=== PATIENT | male | born 1960 | race Caucasian/White ===

== ENCOUNTER 2017-02-15 08:31 | Day surgery (SDC) | payer BC ==
[2017-02-10 12:22] VITALS: BMI 30.7
[~2017-02-15 08:31] MED LIST: LACTATED RINGERS 1,000 ML IV SCH
--- NOTE | 2017-02-15 08:33 | P.GSHP ---
History of Present Illness H&P Date: 02/15/17 CHIEF COMPLAINT: Colon screen HISTORY OF PRESENT ILLNESS: The patient is a 56-year-old male who presents for colon screen. Lower endoscopy was offered for further evaluation and management. PAST MEDICAL HISTORY: Please see list. PAST SURGICAL HISTORY: Please see list. MEDICATIONS: Please see list. ALLERGIES: Please see list. SOCIAL HISTORY: No illicit drug use FAMILY HISTORY: No reports of Crohn disease or ulcerative colitis. REVIEW OF ORGAN SYSTEMS: CONSTITUTIONAL: No reports of fevers or chills. PHYSICAL EXAM: VITAL SIGNS: Stable GENERAL: Well-developed pleasant in no acute distress. HEENT: No scleral icterus. Extraocular movements grossly intact. Moist buccal mucosa. NECK: Supple without lymphadenopathy. CHEST: Unlabored respirations. Equal bilateral excursions. CARDIOVASCULAR: Regular rate and rhythm. Distal 2+ pulses. ABDOMEN: Soft, nontender, nondistended. MUSCULOSKELETAL: No clubbing, cyanosis, or edema. ASSESSMENT: 1. Colon screen. PLAN: 1. 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, hx colon polyps History of Any Multi-Drug Resistant Organisms: None Reported Additional Past Surgical History / Comment(s): sally cataract surgery Past Anesthesia/Blood Transfusion Reactions: Previous Problems w/ Anesthesia Additional Past Anesthesia/Blood Transfusion Reaction / Comment(s): states takes extra anesthesia has woken up several times during procedures Smoking Status: Current every day smoker Past Alcohol Use History: Daily Additional Past Alcohol Use History / Comment(s): smoker 20 years 5-6 cig/day Past Drug Use History: None Reported - Past Family History Father Family Medical History: Cancer Additional Family Medical History / Comment(s): colon cancer Brother(s) Family Medical History: Blood Disorder, Coronary Artery Disease (CAD), Deep Vein Thrombosis (DVT) Medications and Allergies Home Medications Medication Instructions Recorded Confirmed Type Glaucoma Eye Drops(Unknown Name) 1 drop BOTH EYES DAILY 02/10/17 02/10/17 History Lisinopril [Zestril] 10 mg PO DAILY 02/10/17 02/10/17 History Multivitamins, Thera [Multivitamin 1 tab PO DAILY 02/10/17 02/10/17 History (formulary)] Triamcinolone Acetonide [Nasacort] 1 spray EA NOSTRIL DAILY 02/10/17 02/10/17 History amLODIPine [Norvasc] 20 mg PO DAILY 02/10/17 02/10/17 History Allergies Allergy/AdvReac Type Severity Reaction Status Date / Time morphine Allergy Hallucinati Verified 02/10/17 12:23 ons meperidine [From Demerol] AdvReac Nausea & Verified 02/10/17 12:23 Vomiting
[2017-02-15 08:54] VITALS: TEMP 98.2
[2017-02-15] MEDS ORDERED: LIDOCAINE 1% 20 ML VIAL (10MG/ML) FOR IV START INTRADERMA ONE (09:05)
[2017-02-15] MEDS ORDERED: PROPOFOL 10 MG/ML 20 ML VIAL IV ONE (09:29)
[2017-02-15 09:57] VITALS: RESP 16
[2017-02-15 10:08] VITALS: BP 152/98; PULSE 75
--- NOTE | 2017-02-15 20:03 | P.PCN ---
Date of Procedure: 02/15/17 Description of Procedure: PREOPERATIVE DIAGNOSIS: Colonoscopy screening. Personal history of colon polyps. Family history of colon cancer, father. POSTOPERATIVE DIAGNOSIS: Colonoscopy screening. Personal history of colon polyps. Family history of colon cancer, father. Colon neoplasm, tubular adenoma, 60 cm from the anal verge. OPERATION: Colonoscopy to the ileocecal valve and appendiceal orifice. Colonoscopy with snare polypectomy at 60 cm from the anal verge SURGEON: Valeria Dangelo MD. ANESTHESIA: MAC. INDICATIONS: The patient is a 56-year-old male who presents for colonoscopy screening. His last colonoscopy was over 5 years ago. He has familial history of high risk colon polyps. Benefits and risks were described and informed consent was obtained. DESCRIPTION OF PROCEDURE: The patient had undergone Gatorade, MiraLAX and Dulcolax prep. He had been brought into the operating room and laid in the left lateral decubitus position. After adequate intravenous sedation, the rectum was examined with 2% lidocaine jelly. No external hemorrhoids were encountered. The rectal tone was within normal limits. No lesions were palpated in the rectal vault. The prostate was smooth and without nodularity. An Olympus colonoscope was advanced until the ileocecal valve and appendiceal orifice were clearly viewed. The prep was excellent with clear visualization of the mucosal folds. The scope was removed with visualization of each mucosal fold. No scattered diverticulosis was encountered. At 60 cm from the anal verge, a large 1 cm tubular adenoma with thick stalk was snare polypectomy to completion. No evidence of focal colitis was found. Retroflexion of the scope demonstrated grade 1 internal hemorrhoids without active bleeding or inflammation. The colon was desufflated. The patient had tolerated the procedure well. Withdrawal time was over 6 minutes. FINDINGS: Internal hemorrhoids, grade 1 No external prolapsed hemorrhoids. No arteriovenous malformations. 1 cm tubular adenoma along 60 cm from the anal verge. No focal colitis. No scattered diverticulosis. RECOMMENDATIONS: Lower endoscopy in one year, 2018. Plan - Discharge Summary Discharge Medication List Glaucoma Eye Drops(Unknown Name) 1 drop BOTH EYES DAILY 02/10/17 [History] Lisinopril [Zestril] 10 mg PO DAILY 02/10/17 [History] Multivitamins, Thera [Multivitamin (formulary)] 1 tab PO DAILY 02/10/17 [History ] Triamcinolone Acetonide [Nasacort] 1 spray EA NOSTRIL DAILY 02/10/17 [History] amLODIPine [Norvasc] 20 mg PO DAILY 02/10/17 [History] Follow up Appointment(s)/Referral(s): Valeria Dangelo MD [STAFF PHYSICIAN] - 02/28/17 11:20 am Patient Instructions/Handouts: *Surgery [facility] - (Anesthesia) Endoscopy Discharge Instructions, Colonoscopy (GEN), Colorectal Polyps (DC), Colonoscopy (DC) Activity/Diet/Wound Care/Special Instructions: Repeat colonoscopy in one to 2 years, 2018 Discharge Disposition: HOME SELF-CARE
== END 2017-02-15 10:34 | disposition home or self-care (01) ==
LOC: ORWHC2ENDO 08:31
PROVIDERS: ATTEND Surgery Plastic and Reconstructive Surgery
DX: Z12.11 Encounter for screening for malignant neoplasm of colon (principal); Z86.010 Personal history of colon polyps; Z80.0 Family history of malignant neoplasm of digestive organs; D12.6 Benign neoplasm of colon, unspecified; K64.0 First degree hemorrhoids; I10 Essential (primary) hypertension; H40.9 Unspecified glaucoma; F17.210 Nicotine dependence, cigarettes, uncomplicated; Z86.73 Personal history of transient ischemic attack (TIA), and cerebral infarction without residual deficits; Z79.899 Other long term (current) drug therapy; Z88.5 Allergy status to narcotic agent
CPT/HCPCS: 88305; 45385; J2704

== ENCOUNTER 2020-03-20 13:13 | Inpatient (IN) | payer BC ==
[2020-03-20] MEDS ORDERED: FUROSEMIDE 10 MG/ML 4 ML VIAL IV STA (13:41)
--- NOTE | 2020-03-20 13:48 | ED ---
General Adult HPI - General Chief complaint: Shortness of Breath Stated complaint: feet swelling/SOB Time Seen by Provider: 03/20/20 13:20 Source: patient, RN notes reviewed, old records reviewed Mode of arrival: ambulatory Limitations: no limitations - History of Present Illness Initial comments: This is a 59-year-old male who presents to the emergency department with a two- week history of difficulty breathing and swollen legs. Patient states she's had intermittent chest pain over the last 2 weeks. Patient states she has high blood pressure high cost fine does smoke. Patient also states she has family history of heart disease in his father was in his 50s when he had a heart attack and and his brother also of heart attack and congestive heart failure. Patient states the pain comes and goes and is a pressure sensation more than it is actual pain. Patient denies any fever chills or cough. Patient denies any palpitations. Patient states the swelling is gone up both legs and he was put on Lasix but has not helped. Patient denies any abdominal pain patient denies nausea vomiting diarrhea. - Related Data Home Medications Medication Instructions Recorded Confirmed Glaucoma Eye Drops(Unknown Name) 1 drop BOTH EYES DAILY 02/10/17 02/15/17 Lisinopril [Zestril] 10 mg PO DAILY 02/10/17 02/15/17 Multivitamins, Thera [Multivitamin 1 tab PO DAILY 02/10/17 02/15/17 (formulary)] Triamcinolone Acetonide [Nasacort] 1 spray EA NOSTRIL DAILY 02/10/17 02/15/17 amLODIPine [Norvasc] 20 mg PO DAILY 02/10/17 02/15/17 Allergies Allergy/AdvReac Type Severity Reaction Status Date / Time morphine Allergy Hallucinati Verified 03/20/20 13:24 ons meperidine [From Demerol] AdvReac Nausea & Verified 03/20/20 13:24 Vomiting Review of Systems ROS Statement: Those systems with pertinent positive or pertinent negative responses have been documented in the HPI. ROS Other: All systems not noted in ROS Statement are negative. 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, hx colon polyps History of Any Multi-Drug Resistant Organisms: None Reported Additional Past Surgical History / Comment(s): sally cataract surgery Past Anesthesia/Blood Transfusion Reactions: Previous Problems w/ Anesthesia Additional Past Anesthesia/Blood Transfusion Reaction / Comment(s): states takes extra anesthesia has woken up several times during procedures Past Psychological History: No Psychological Hx Reported Smoking Status: Current every day smoker Past Alcohol Use History: Daily Past Drug Use History: None Reported - Past Family History Father Family Medical History: Cancer Additional Family Medical History / Comment(s): colon cancer Brother(s) Family Medical History: Blood Disorder, Coronary Artery Disease (CAD), Deep Vein Thrombosis (DVT) General Exam - General Exam Comments Initial Comments: GENERAL: Patient is well-developed and well-nourished. Patient is nontoxic and well- hydrated and is in mild distress. ENT: Neck is soft and supple. No significant lymphadenopathy is noted. Oropharynx is clear. Moist mucous membranes. Neck has full range of motion without eliciting any pain. EYES: The sclera were anicteric and conjunctiva were pink and moist. Extraocular movements were intact and pupils were equal round and reactive to light. Eyelids were unremarkable. PULMONARY: Unlabored respirations. Good breath sounds bilaterally. No audible rales rhonchi or wheezing was noted. CARDIOVASCULAR: There is a regular rate and rhythm without any murmurs gallops or rubs. ABDOMEN: Soft and nontender with normal bowel sounds. SKIN: Skin is clear with no lesions or rashes and otherwise unremarkable. NEUROLOGIC: Patient is alert and oriented x3. Cranial nerves II through XII are grossly intact. Motor and sensory are also intact. Normal speech, volume and content. Symmetrical smile. MUSCULOSKELETAL: Normal extremities with adequate strength and full range of motion. 2+ bilaterally LYMPHATICS: No significant lymphadenopathy is noted PSYCHIATRIC: Normal psychiatric evaluation. Limitations: no limitations Course Vital Signs 03/20/20 03/20/20 13:20 15:20 Temperature 98.1 F Pulse Rate 93 94 Respiratory 18 18 Rate Blood Pressure 164/85 151/83 O2 Sat by Pulse 96 96 Oximetry Medical Decision Making - Medical Decision Making EKG shows a sinus rhythm with occasional PAC at 87 bpm WV interval 148 QRS is 94 QT interval 356 QTC is 428. Patient's EKG shows no ST segment elevation or depression. Patient's chest x-ray showed no acute abnormality. Patient continued to be short of breath. I spoke with Dr. Finch he agreed to admit the patient admitted the patient wrote admitting orders consult at cardiology Because the patient's intermittent chest pain for 2 weeks a strong history I started the patient on heparin I continue heparin on the floor along with Nitropaste and aspirin - Lab Data Result diagrams: 03/20/20 14:18 03/20/20 14:18 Lab Results 03/20/20 03/20/20 03/20/20 Range/Units 14:18 14:18 14:18 WBC 11.5 H (3.8-10.6) k/uL RBC 4.64 (4.30-5.90) m/uL Hgb 14.9 (13.0-17.5) gm/dL Hct 45.1 (39.0-53.0) % MCV 97.3 (80.0-100.0) fL MCH 32.1 (25.0-35.0) pg MCHC 33.0 (31.0-37.0) g/dL RDW 12.8 (11.5-15.5) % Plt Count 287 (150-450) k/uL Neutrophils % 50 % Lymphocytes % 35 % Monocytes % 7 % Eosinophils % 3 % Basophils % 1 % Neutrophils # 5.7 (1.3-7.7) k/uL Lymphocytes # 4.1 (1.0-4.8) k/uL Monocytes # 0.8 (0-1.0) k/uL Eosinophils # 0.4 (0-0.7) k/uL Basophils # 0.1 (0-0.2) k/uL PT 9.8 (9.0-12.0) sec INR 0.9 (<1.2) APTT 26.0 (22.0-30.0) sec D-Dimer 0.40 (<0.60) mg/L FEU Sodium 138 (137-145) mmol/L Potassium 3.9 (3.5-5.1) mmol/L Chloride 102 (98-107) mmol/L Carbon Dioxide 26 (22-30) mmol/L Anion Gap 10 mmol/L BUN 28 H (9-20) mg/dL Creatinine 1.29 H (0.66-1.25) mg/dL Est GFR (CKD-EPI)AfAm 69 (>60 ml/min/1.73 sqM) Est GFR (CKD-EPI)NonAf 60 (>60 ml/min/1.73 sqM) Glucose 124 H (74-99) mg/dL Plasma Lactic Acid Memo (0.7-2.0) mmol/L Calcium 10.2 (8.4-10.2) mg/dL Magnesium 1.9 (1.6-2.3) mg/dL Total Bilirubin 0.4 (0.2-1.3) mg/dL AST 73 H (17-59) U/L ALT 79 H (4-49) U/L Alkaline Phosphatase 90 (38-126) U/L Troponin I (0.000-0.034) ng/mL NT-Pro-B Natriuret Pep pg/mL Total Protein 7.5 (6.3-8.2) g/dL Albumin 4.2 (3.5-5.0) g/dL 03/20/20 03/20/20 03/20/20 Range/Units 14:18 14:18 14:18 WBC (3.8-10.6) k/uL RBC (4.30-5.90) m/uL Hgb (13.0-17.5) gm/dL Hct (39.0-53.0) % MCV (80.0-100.0) fL MCH (25.0-35.0) pg MCHC (31.0-37.0) g/dL RDW (11.5-15.5) % Plt Count (150-450) k/uL Neutrophils % % Lymphocytes % % Monocytes % % Eosinophils % % Basophils % % Neutrophils # (1.3-7.7) k/uL Lymphocytes # (1.0-4.8) k/uL Monocytes # (0-1.0) k/uL Eosinophils # (0-0.7) k/uL Basophils # (0-0.2) k/uL PT (9.0-12.0) sec INR (<1.2) APTT (22.0-30.0) sec D-Dimer (<0.60) mg/L FEU Sodium (137-145) mmol/L Potassium (3.5-5.1) mmol/L Chloride (98-107) mmol/L Carbon Dioxide (22-30) mmol/L Anion Gap mmol/L BUN (9-20) mg/dL Creatinine (0.66-1.25) mg/dL Est GFR (CKD-EPI)AfAm (>60 ml/min/1.73 sqM) Est GFR (CKD-EPI)NonAf (>60 ml/min/1.73 sqM) Glucose (74-99) mg/dL Plasma Lactic Acid Memo 1.8 (0.7-2.0) mmol/L Calcium (8.4-10.2) mg/dL Magnesium (1.6-2.3) mg/dL Total Bilirubin (0.2-1.3) mg/dL AST (17-59) U/L ALT (4-49) U/L Alkaline Phosphatase (38-126) U/L Troponin I <0.012 (0.000-0.034) ng/mL NT-Pro-B Natriuret Pep 73 pg/mL Total Protein (6.3-8.2) g/dL Albumin (3.5-5.0) g/dL Critical Care Time Critical Care Time: Yes Total Critical Care Time: 35 Disposition Clinical Impression: Unstable angina Disposition: ADMITTED IP TO THIS [facility] Referrals: Jason Humphrey MD [Primary Care Provider] - 1-2 days Time of Disposition: 15:25
[2020-03-20 14:36] LABS: Basophils # (A) 0.1 k/uL (0-0.2); Basophils % (A) 1 %; Eosinophils # (A) 0.4 k/uL (0-0.7); Eosinophils % (A) 3 %; HCT 45.1 % (39.0-53.0); HGB 14.9 gm/dL (13.0-17.5); Lymphocytes # (A) 4.1 k/uL (1.0-4.8); Lymphocytes % (A) 35 %; MCH 32.1 pg (25.0-35.0); MCV 97.3 fL (80.0-100.0); Mean Platelet Volume 6.9; Monocytes # (A) 0.8 k/uL (0-1.0); Monocytes % (A) 7 %; Neutrophils # (A) 5.7 k/uL (1.3-7.7); Neutrophils % (A) 50 %; Platelet Count 287 k/uL (150-450); RBC 4.64 m/uL (4.30-5.90); RDW 12.8 % (11.5-15.5); WBC 11.5 k/uL (3.8-10.6)
[2020-03-20 14:46] LABS: Albumin 4.2 g/dL (3.5-5.0); Calcium 10.2 mg/dL (8.4-10.2); Magnesium 1.9 mg/dL (1.6-2.3); Potassium 3.9 mmol/L (3.5-5.1); Total Bilirubin 0.4 mg/dL (0.2-1.3); Total Protein 7.5 g/dL (6.3-8.2)
[2020-03-20 14:50] LABS: D-Dimer 0.4 mg/L FEU (<0.60); INR 0.9 (<1.2); Prothrombin Time 9.8 sec (9.0-12.0)
--- NOTE | 2020-03-20 14:54 | XR ---
EXAMINATION TYPE: XR chest 2V DATE OF EXAM: 03/20/2020 COMPARISON: NONE HISTORY: Difficulty breathing TECHNIQUE: Frontal and lateral views of the chest are obtained. FINDINGS: There is no focal air space opacity, pleural effusion, or pneumothorax seen. The cardiac silhouette size is within normal limits. The osseous structures are intact. There is eventration of right hemidiaphragm. Old left clavicular fracture shows a healed appearance, anterior second and thi rd ribs also show mild irregularity possibly posttraumatic. Flattening the hemidiaphragms may be ángela cative of underlying COPD. Strand-like densities at the lingula may reflect scarring or minimal atele ctasis. IMPRESSION: Suspect some minimal atelectasis or scarring.
[2020-03-20] MEDS ORDERED: ASPIRIN 81 MG PO STA (15:18)
[2020-03-20] MEDS ORDERED: NITROGLYCERIN OINT 1 INCH/GM PACKET TOPICAL STA (15:18)
[2020-03-20] MEDS ORDERED: NITROGLYCERIN SL TABS 0.4 MG TAB SUBLINGUAL PRN (15:25)
[2020-03-20] MEDS ORDERED: HEPARIN SODIUM,PORCINE 5,000 UNIT/ML 1 ML VIAL IV ONE (15:27)
[2020-03-20] MEDS ORDERED: HEPARIN SOD,PORK IN 0.45% NACL 25,000 UNIT in 0.45% NACL 1 250ML.BAG IV SCH (15:30)
[2020-03-20] MEDS: PRAVASTATIN SODIUM 20 MG TAB PO SCH (22:00)
[2020-03-20] MEDS: LATANOPROST 0.005% OPHTH DROPS 2.5 ML BTL BOTH EYES SCH (22:00)
[2020-03-21 03:34] LABS: Cholesterol 218 mg/dL (<200); HDL Cholesterol 53 mg/dL (40-60); LDL Cholesterol,Calculated 91 mg/dL (0-99); Triglycerides 368 mg/dL (<150)
--- NOTE | 2020-03-21 08:35 | P.CRDCN ---
History of Present Illness Consult date: 03/21/20 Requesting physician: Manju Finch Reason for Consult (text): unstable angina Chief complaint: lower extremity edema, shortness of breath, chest heaviness History of present illness: This is a pleasant 59-year-old gentleman with a past history of hypertension, hyperlipidemia, and apparently carotid artery clot for which she was on blood thinners for a short time many years ago.. He has a family history of premature coronary artery disease and he had a negative stress test about 6 years ago. He presented to the hospital with complaints of lower extremity edema as well as dyspnea on exertion that has been ongoing for about 2 weeks. He was initiated on by mouth Lasix by his primary care physician and was taking up to 60 mg twice a day without much improvement. Yesterday morning he developed some chest heaviness while lying in bed. He was admitted through the emergency department initiated on a heparin drip. EKG showed sinus rhythm with PACs. Chest Xray showed findings indicative of underlying COPD with suspected minimal atelectasis or scarring. Laboratory values showed white blood cell count of 11.5, d-dimer 0.40, potassium 3.9, BUN 28, creatinine 1.29, pleasant black faceted level 1.8 AST 73, ALT 79 with a normal alkaline phosphatase, troponins negative 3, NT pr oBNP 73, total cholesterol 218, LDL 91, HDL 53 and triglycerides 368. His vital signs at been stable he's been afebrile. Blood pressure on admission was initially elevated but was low overnight. According to the patient he normally does not have any dyspnea on exertion but was not very active over the winter and over the last several months. He's been working from home. He continues to complain of lower extremity edema with bilateral calf pain, worse in the left. He denies complaints of chest discomfort this morning. Does complain of occasional dizziness but no syncope. He's had no palpitations, nausea, diaphoresis. 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, hx colon polyps History of Any Multi-Drug Resistant Organisms: None Reported Additional Past Surgical History / Comment(s): sally cataract surgery Past Anesthesia/Blood Transfusion Reactions: Previous Problems w/ Anesthesia Additional Past Anesthesia/Blood Transfusion Reaction / Comment(s): states takes extra anesthesia has woken up several times during procedures Past Psychological History: No Psychological Hx Reported Smoking Status: Current every day smoker Past Alcohol Use History: Daily Additional Past Alcohol Use History / Comment(s): smokes 5/6 Past Drug Use History: None Reported - Past Family History Father Family Medical History: Cancer Additional Family Medical History / Comment(s): colon cancer Brother(s) Family Medical History: Blood Disorder, Coronary Artery Disease (CAD), Deep Vein Thrombosis (DVT) Medications and Allergies Home Medications Medication Instructions Recorded Confirmed Type amLODIPine [Norvasc] 10 mg PO DAILY 02/10/17 03/20/20 History Furosemide [Lasix] 60 mg PO BID 03/20/20 03/20/20 History Lisinopril [Zestril] 10 mg PO DAILY 03/20/20 03/20/20 History Multivit-Min/FA/Lycopen/Lutein 1 tab PO DAILY 03/20/20 03/20/20 History [Centrum Silver Men Tablet] Pravastatin Sodium [Pravachol] 20 mg PO HS 03/20/20 03/20/20 History Timolol [Betimol 0.5% Ophth Soln] 1 drop BOTH EYES DAILY 03/20/20 03/20/20 History Travoprost 1 drop BOTH EYES HS 03/20/20 03/20/20 History Allergies Allergy/AdvReac Type Severity Reaction Status Date / Time morphine Allergy Hallucinati Verified 03/20/20 13:24 ons meperidine [From Demerol] AdvReac Nausea & Verified 03/20/20 13:24 Vomiting Physical Exam Vitals: Vital Signs Temp Pulse Pulse Resp BP BP Pulse Ox 03/21/20 04:00 97.5 F L 84 18 100/75 93 L 03/21/20 00:00 97.9 F 89 18 108/58 92 L 03/20/20 20:00 82 18 127/77 93 L 03/20/20 17:06 97.8 F 81 20 135/77 94 L 03/20/20 16:44 98 F 68 18 128/85 96 03/20/20 15:20 94 18 151/83 96 03/20/20 13:20 98.1 F 93 18 164/85 96 Intake and Output 03/20/20 03/21/20 03/21/20 22:59 06:59 14:59 Intake Total 350 83.808 Output Total 500 Balance 350 -416.192 Intake: Intake, IV Titration 83.808 Amount Heparin Sod,Pork in 0.45% 83.808 NaCl 25,000 unit In 0.45 % NaCl 1 250ml.bag @ 7.6 UNITS/KG/HR 9.997 mls/hr IV .Q24H JEANINE Rx#: [id number] Oral 350 Output: Urine 500 Other: Voiding Method Toilet Toilet Urinal Urinal # Voids 2 Weight 133.3 kg 135.2 kg PHYSICAL EXAMINATION: HEENT: Head is atraumatic, normocephalic. Pupils equal, round. Neck is supple. There is no elevated jugular venous pressure. HEART EXAMINATION: Heart sounds regular, S1 and S2 normal. No murmur or gallop heard. CHEST EXAMINATION: Lungs are clear but diminished to auscultation. No chest wall tenderness is noted on palpation or with deep breathing. ABDOMEN: Soft, obese, nontender. Bowel sounds are heard. No organomegaly noted. EXTREMITIES: 1+ peripheral pulses with evidence of 2+ peripheral edema and calf tenderness noted. NEUROLOGIC patient is awake, alert and oriented x3. . Results 03/20/20 14:18 03/20/20 14:18 Cardiac Enzymes 03/20/20 03/20/20 03/20/20 Range/Units 14:18 14:18 20:23 AST 73 H (17-59) U/L Troponin I <0.012 <0.012 (0.000-0.034) ng/mL 03/21/20 Range/Units 01:55 AST (17-59) U/L Troponin I <0.012 (0.000-0.034) ng/mL Coagulation 03/20/20 03/20/20 03/21/20 Range/Units 00:10 14:18 07:25 PT 9.8 (9.0-12.0) sec APTT 29.0 26.0 31.1 H (22.0-30.0) sec Lipids 03/20/20 Range/Units 14:18 Triglycerides 368 H (<150) mg/dL Cholesterol 218 H (<200) mg/dL HDL Cholesterol 53 (40-60) mg/dL CBC 03/20/20 Range/Units 14:18 WBC 11.5 H (3.8-10.6) k/uL RBC 4.64 (4.30-5.90) m/uL Hgb 14.9 (13.0-17.5) gm/dL Hct 45.1 (39.0-53.0) % Plt Count 287 (150-450) k/uL Comprehensive Metabolic Panel 03/20/20 Range/Units 14:18 Sodium 138 (137-145) mmol/L Potassium 3.9 (3.5-5.1) mmol/L Chloride 102 (98-107) mmol/L Carbon Dioxide 26 (22-30) mmol/L BUN 28 H (9-20) mg/dL Creatinine 1.29 H (0.66-1.25) mg/dL Glucose 124 H (74-99) mg/dL Calcium 10.2 (8.4-10.2) mg/dL AST 73 H (17-59) U/L ALT 79 H (4-49) U/L Alkaline Phosphatase 90 (38-126) U/L Total Protein 7.5 (6.3-8.2) g/dL Albumin 4.2 (3.5-5.0) g/dL Current Medications Generic Name Dose Route Start Last Admin Trade Name Freq PRN Reason Stop Dose Admin Amlodipine Besylate 10 mg 03/21/20 09:00 Norvasc PO DAILY [facility] Aspirin 325 mg 03/21/20 09:00 Aspirin PO DAILY [facility] Heparin Sodium/Sodium Chloride 250 mls @ 9.997 mls/hr 03/20/20 15:30 03/21/20 01:00 25,000 unit/ Sodium Chloride IV 10.6 units/kg/hr .Q24H JEANINE 13.943 mls/hr Titration Protocol 7.6 UNITS/KG/HR Latanoprost 1 drops 03/20/20 21:00 03/20/20 22:00 Xalatan 0.005% BOTH EYES Not Given HS [facility] Multivitamins 1 each 03/21/20 09:00 Theragran PO DAILY [facility] Nitroglycerin 0.4 mg 03/20/20 15:25 Nitrostat SUBLINGUAL Q5M PRN Chest Pain Pravastatin Sodium 20 mg 03/20/20 21:00 03/20/20 22:00 Pravachol PO Not Given HS [facility] Timolol Maleate 1 drops 03/21/20 09:00 Timoptic BOTH EYES DAILY [facility] Intake and Output 03/20/20 03/21/20 03/21/20 22:59 06:59 14:59 Intake Total 350 83.808 Output Total 500 Balance 350 -416.192 Intake: Intake, IV Titration 83.808 Amount Heparin Sod,Pork in 0.45% 83.808 NaCl 25,000 unit In 0.45 % NaCl 1 250ml.bag @ 7.6 UNITS/KG/HR 9.997 mls/hr IV .Q24H JEANINE Rx#: [id number] Oral 350 Output: Urine 500 Other: Voiding Method Toilet Toilet Urinal Urinal # Voids 2 Weight 133.3 kg 135.2 kg 03/20/20 14:18 03/20/20 14:18 EKG Interpretations (text) Sinus rhythm with PACs Assessment and Plan Assessment: #1 symptoms of lower extremity edema, dyspnea on exertion and chest heaviness, NT proBNP is normal and troponin negative 3 with a negative d-dimer. #2 hypertension #3 hyperlipidemia #4 acute kidney injury #5 current every day smoker #6 evidence of COPD and chest x-ray Plan: From cardiology's perspective, we will obtain a 2-D echo with Doppler. We will decrease amlodipine to 5 mg daily. Discontinue IV heparin drip. We will add IV lasix. Depending on his progress and echo results further recommendations will be made. 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 Patient was seen and examined.
[2020-03-21] MEDS: MULTIVITAMINS, THERA 1 EACH TAB PO SCH (08:43)
[2020-03-21] MEDS: TIMOLOL 0.5% OPHTH DROPS 5 ML BTL BOTH EYES SCH (08:44)
[2020-03-21] MEDS: amLODIPine 5 MG TAB PO SCH (08:47)
[2020-03-21] MEDS ORDERED: amLODIPine 10 MG TAB PO SCH (09:00)
[2020-03-21] MEDS ORDERED: ASPIRIN 325 MG TAB PO SCH (09:00)
[2020-03-21] MEDS: ASPIRIN 81 MG PO SCH (09:42)
[2020-03-21] MEDS: FUROSEMIDE 10 MG/ML 4 ML VIAL IV SCH ×2 (09:52→21:18)
--- NOTE | 2020-03-21 11:08 | ECHOF ---
Referral Reason:Dyspnea, chest pain MEASUREMENTS -------- HEIGHT: 182.9 cm WEIGHT: 135.2 kg BP: RVIDd: 2.7 cm (< 3.3) IVSd: 1.5 cm (0.6 - 1.1) LVIDd: 4.2 cm (3.9 - 5.3) LVPWd: 1.5 cm (0.6 - 1.1) IVSs: 1.9 cm LVIDs: 2.1 cm LVPWs: 1.9 cm LAESV Index (A-L): 18.48 ml/m Ao Diam: 2.8 cm (2.0 - 3.7) AV Cusp: 1.8 cm (1.5 - 2.6) LA Diam: 2.7 cm (2.7 - 3.8) MV EXCURSION: 17.354 mm (> 18.000) MV EF SLOPE: 142 mm/s (70 - 150) EPSS: 2.0 cm MV E Sharath: 1.00 m/s MV DecT: 321 ms MV A Sharath: 1.06 m/s MV E/A Ratio: 0.95 RAP: 5.00 mmHg RVSP: 14.41 mmHg TAPSE: 29.26 mm FINDINGS -------- Sinus rhythm. This was a technically difficult study with suboptimal views. The left ventricular size is normal. There is moderate concentric left ventricular hypertrophy. O verall left ventricular systolic function is normal with, an EF between 55 - 60 %. Normal LAP Grade 1 Diastolic Dysfunction. The right ventricle is normal in size. Normal LA size by volume 22+/-6 ml/m2. The right atrial size is normal. Aortic valve is trileaflet and is mildly thickened. The mitral valve is normal. There is trace mitral regurgitation. The tricuspid valve appears structurally normal. Trace tricuspid regurgitation present. Right may tricular systolic pressure is normal at < 35 mmHg. The pulmonic valve was not well visualized. There is no pulmonic regurgitation present. The aortic root size is normal. IVC Not well visulized. There is no pericardial effusion. CONCLUSIONS -------- 1. This was a technically difficult study with suboptimal views. 2. There is moderate concentric left ventricular hypertrophy. 3. Overall left ventricular systolic function is normal with, an EF between 55 - 60 %. 4. Normal LAP Grade 1 Diastolic Dysfunction. 5. Normal LA size by volume 22+/-6 ml/m2. 6. Aortic valve is trileaflet and is mildly thickened. 7. There is trace mitral regurgitation. 8. Trace tricuspid regurgitation present. 9. Right ventricular systolic pressure is normal at < 35 mmHg. 10. There is no pericardial effusion. SIGNAL APPRENTICE: Kaur Cartagena RDCS
[2020-03-21] MEDS ORDERED: IPRATROPIUM-ALBUTEROL 3 ML NEB INHALATION PRN (15:03)
--- NOTE | 2020-03-21 15:56 | P.HPIM ---
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 Patient says that he developed chest heaviness the night before admission started around midnight and until 4:30 AM in the morning. Mainly left retrosternal discomfort. Denied any radiation of the pain. No associated nausea vomiting or diaphoresis. Pain gets worse when he was lying in the bed and taking deep breaths. Patient has been having shortness of breath and bilateral lower action to swelling for the past 2 weeks. Left leg swelling is slightly worse than right. Patient was seen by his primary care physician was started on oral Lasix without much improvement. Denied any fever or chills. No cough or sputum production. Denied any sick contacts. Denied any palpitations. No complaints of abdominal pain. No nausea vomiting or diarrhea. Denied any recent illnesses. Patient does have family history of coronary artery disease in his father in his 50s. His brother of heart attack and congestive heart failure. Laboratory data showed WBC 11.5, hemoglobin 14.9 D-dimer is 0.40 not elevated. BUN 28 and creatinine 1.29, proBNP 73, troponin 3 negative. AST 73 and ALT 79. LDL 91 and triglycerides 268, total cholesterol is 218 Chest x-ray showed findings suggestive of COPD. Suspect some minimal atelectasis or scarring noted. EKG showed sinus rhythm with PACs. No ST- T-wave elevation noted. Patient denied any complaints of dizziness or lightheadedness. No complaints of chest pain now. Review of Systems Constitutional: Patient denies any fever or chills . No generalized weakness or weight loss. Abdomen: Patient denied nausea vomiting and diarrhea and abdominal pain. Cardiovascular: Patient does have chest discomfort, short of breath no palpitations. Respiratory: patient denied any cough is from production. No shortness of osei ath Neurologic: Patient denied any numbness or tingling headache. Musculoskeletal: Patient denies any complaints of joint swelling or deformity. Skin: Negative Psychiatric: Negative Endocrine: No heat or cold intolerance. No recent weight gain. Genitourinary: No dysuria or hematuria. All other 14 point ROS negative except the above 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, hx colon polyps History of Any Multi-Drug Resistant Organisms: None Reported Additional Past Surgical History / Comment(s): sally cataract surgery Past Anesthesia/Blood Transfusion Reactions: Previous Problems w/ Anesthesia Additional Past Anesthesia/Blood Transfusion Reaction / Comment(s): states takes extra anesthesia has woken up several times during procedures Past Psychological History: No Psychological Hx Reported Smoking Status: Current every day smoker Past Alcohol Use History: Daily Additional Past Alcohol Use History / Comment(s): smokes 5/6 Past Drug Use History: None Reported - Past Family History Father Family Medical History: Cancer Additional Family Medical History / Comment(s): colon cancer Brother(s) Family Medical History: Blood Disorder, Coronary Artery Disease (CAD), Deep Vein Thrombosis (DVT) Medications and Allergies Home Medications Medication Instructions Recorded Confirmed Type amLODIPine [Norvasc] 10 mg PO DAILY 02/10/17 03/20/20 History Furosemide [Lasix] 60 mg PO BID 03/20/20 03/20/20 History Lisinopril [Zestril] 10 mg PO DAILY 03/20/20 03/20/20 History Multivit-Min/FA/Lycopen/Lutein 1 tab PO DAILY 03/20/20 03/20/20 History [Centrum Silver Men Tablet] Pravastatin Sodium [Pravachol] 20 mg PO HS 03/20/20 03/20/20 History Timolol [Betimol 0.5% Ophth Soln] 1 drop BOTH EYES DAILY 03/20/20 03/20/20 History Travoprost 1 drop BOTH EYES HS 03/20/20 03/20/20 History Allergies Allergy/AdvReac Type Severity Reaction Status Date / Time morphine Allergy Hallucinati Verified 03/20/20 13:24 ons meperidine [From Demerol] AdvReac Nausea & Verified 03/20/20 13:24 Vomiting Physical Exam Vitals: Vital Signs Temp Pulse Pulse Resp BP BP Pulse Ox 03/21/20 08:00 97.8 F 89 16 122/60 96 03/21/20 04:00 97.5 F L 84 18 100/75 93 L 03/21/20 00:00 97.9 F 89 18 108/58 92 L 03/20/20 20:00 82 18 127/77 93 L 03/20/20 17:06 97.8 F 81 20 135/77 94 L 03/20/20 16:44 98 F 68 18 128/85 96 03/20/20 15:20 94 18 151/83 96 03/20/20 13:20 98.1 F 93 18 164/85 96 Intake and Output 03/20/20 03/21/20 03/21/20 22:59 06:59 14:59 Intake Total 350 83.808 236 Output Total 500 Balance 350 -416.192 236 Intake: Intake, IV Titration 83.808 Amount Heparin Sod,Pork in 0.45% 83.808 NaCl 25,000 unit In 0.45 % NaCl 1 250ml.bag @ 7.6 UNITS/KG/HR 9.997 mls/hr IV .Q24H [facility] Rx#: [id number] Oral 350 236 Output: Urine 500 Other: Voiding Method Toilet Toilet Urinal Urinal # Voids 2 Weight 133.3 kg 135.2 kg PHYSICAL EXAMINATION: Patient is lying in the bed comfortably, no acute distress, awake alert and or iented.. HEENT: Normocephalic. Neck is supple. Pupils reactive. Nostrils clear. Oral cavity is moist. Ears reveal no drainage. Neck reveals no JVD, carotid bruits, or thyromegaly. CHEST EXAMINATION: Trachea is central. Symmetrical expansion. Bilateral prolonged breath sounds. No wheezing no crackles. Lung finley clear to auscultation and percussion. CARDIAC: Normal S1, S2 with no gallops. No murmurs ABDOMEN: Soft. Bowel sounds normal. No organomegaly. No abdominal bruits. Extremities: Bilateral lower extremity 2+ edema, slightly greater on the left side.. No clubbing or cyanosis Neurologically awake, alert, oriented x3 with well-coordinated movements. No focal deficits noted Skin: No rash or skin lesions. Psychiatric: Coperative. Nonsuicidal Musculoskeletal: No joint swelling or deformity. Normal range of motion. Results CBC & Chem 7: 03/20/20 14:18 03/20/20 14:18 Labs: Abnormal Lab Results - Last 24 Hours (Table) 03/20/20 03/20/20 03/20/20 Range/Units 14:18 14:18 14:18 WBC 11.5 H (3.8-10.6) k/uL APTT (22.0-30.0) sec BUN 28 H (9-20) mg/dL Creatinine 1.29 H (0.66-1.25) mg/dL Glucose 124 H (74-99) mg/dL AST 73 H (17-59) U/L ALT 79 H (4-49) U/L Triglycerides 368 H (<150) mg/dL Cholesterol 218 H (<200) mg/dL 03/21/20 Range/Units 07:25 WBC (3.8-10.6) k/uL APTT 31.1 H (22.0-30.0) sec BUN (9-20) mg/dL Creatinine (0.66-1.25) mg/dL Glucose (74-99) mg/dL AST (17-59) U/L ALT (4-49) U/L Triglycerides (<150) mg/dL Cholesterol (<200) mg/dL Thrombosis Risk Factor Assmnt - DVT/VTE Prophylaxis DVT/VTE Prophylaxis: Pharmacologic Prophylaxis ordered - Choose All That Apply Any of the Below Risk Factors Present?: Yes Each Factor Represents 1 point: Age 41-60 years, Obesity (BMI >25) Thrombosis Risk Factor Assessment Total Risk Factor Score: 2 Thrombosis Risk Factor Assessment Level: Low Risk Assessment and Plan Assessment: Chest heaviness and shortness of breath. Ruled out ACS. Likely due to underlying COPD. ProBNP not elevated and troponin 3 negative. D-dimer is not elevated. Bilateral lower extremity edema L > R . Unlikely CHF, DVT and hypoalbuminemia with Mild transaminitis. Hypertension Hyperlipidemia with LDL 91 and mild hypercoagulability anemia Ongoing nicotine addiction Daily alcohol use Morbid obesity BMI 41.6 Mild acute kidney injury with creatinine level I.29 DVT prophylaxis with heparin subcu. Plan: Patient will be continued on Lasix 40 mg every 12 and follow-up renal function. He underwent dose decreased to 5 mg daily. Patient was initially started on heparin drip which has been discontinued. Troponin 3 negative. Continued on telemetry monitoring. 2-D echocardiogram was ordered an also check ultrasound abdomen/liver due to alcohol use on daily basis. Unlikely DVT without elevated d-dimer level. Follow up closely and further recommendations based on the clinical course. Cardiology is on board. Time with Patient: Greater than 30
[2020-03-21] MEDS: HEPARIN SODIUM,PORCINE 5,000 UNIT/ML 1 ML VIAL SQ SCH (16:05)
[2020-03-21] MEDS: PRAVASTATIN SODIUM 20 MG TAB PO SCH (21:18)
[2020-03-21] MEDS: LATANOPROST 0.005% OPHTH DROPS 2.5 ML BTL BOTH EYES SCH (21:19)
[2020-03-22 07:03] LABS: Albumin 4.2 g/dL (3.5-5.0); Calcium 9.8 mg/dL (8.4-10.2); Potassium 4.4 mmol/L (3.5-5.1); Total Bilirubin 0.5 mg/dL (0.2-1.3); Total Protein 7.6 g/dL (6.3-8.2)
[2020-03-22] MEDS: HEPARIN SODIUM,PORCINE 5,000 UNIT/ML 1 ML VIAL SQ SCH ×4 (07:35→23:13)
[2020-03-22] MEDS: FUROSEMIDE 10 MG/ML 4 ML VIAL IV SCH ×2 (08:37→20:12)
[2020-03-22] MEDS: ASPIRIN 81 MG PO SCH (08:37)
[2020-03-22] MEDS: amLODIPine 5 MG TAB PO SCH (08:38)
[2020-03-22] MEDS: MULTIVITAMINS, THERA 1 EACH TAB PO SCH (08:38)
[2020-03-22] MEDS: TIMOLOL 0.5% OPHTH DROPS 5 ML BTL BOTH EYES SCH (08:38)
--- NOTE | 2020-03-22 08:39 | US ---
EXAMINATION TYPE: US abdomen limited DATE OF EXAM: 03/22/2020 COMPARISON: NONE CLINICAL HISTORY: Elevated liver enzymes. Difficult and limited exam due to patient body habitus and overlying bowel gas EXAM MEASUREMENTS: Liver Length: 17.2 cm Gallbladder Wall: 0.2 cm CBD: 0.4 cm Right Kidney: 12.3 x 5.0 x 4.0 cm Pancreas: Obscured by bowel gas Liver: Enlarged, heterogeneous, attenuating. Cystic area right lobe measuring 0.8 x 0.5 x 0.8 cm Gallbladder: wnl Evidence for sonographic Mcnamara's sign: No CBD: wnl as visualized Right Kidney: No hydronephrosis or masses seen The pancreas is not visualized. The liver is normal in size without biliary dilatation. It is mildly heterogenous. There is an irregu lar, 7.6 mm cystic lesion in the anterior segment of the right lobe of the liver. This is not simply cystic. The gallbladder is unremarkable. The gallbladder wall measures 2 mm. The distal common hepatic duct m easures 4 mm. There is no sonographic Mcnamara's sign. The right kidney is unremarkable. IMPRESSION: 1. Small cystic lesion in the right lobe of the liver is not simply cystic. This should BE further as sessed with either CT or MRI.
--- NOTE | 2020-03-22 09:21 | PN ---
PROGRESS NOTE Mr. Ferrera is a 59-year-old male who presented with symptoms of worsening dyspnea and peripheral edema. He is feeling better today. His breathing is better. He denies any chest pain. He denies any dizziness or palpitation. His peripheral edema is better. He underwent an echocardiogram yesterday that revealed a preserved left ventricular size and systolic function. He underwent an ultrasound of the abdomen that revealed small cystic lesion in the right lobe of the liver. He continues to be on IV diuretics in the form of Lasix 40 mg IV q.12 hours, aspirin once a day, amlodipine 5 mg daily, pravastatin 20 mg daily. PHYSICAL EXAMINATION: Blood pressure 132/80 with a heart rate in 70s. LUNGS: Clear. HEART: Regular rate and rhythm S1, S2. No S3. No rub. ABDOMEN: Soft, obese, nontender. EXTREMITIES with decreased edema of 1+ now. LAB DATA: BUN and creatinine 22 and 1.07, potassium 4.4. TSH of 1.7. IMPRESSION: 1. Peripheral edema with no clear evidence of congestive heart failure, improving. 2. History of hypertension. 3. History of chronic tobacco use. 4. Abnormal renal function, improving. 5. Hyperlipidemia. RECOMMENDATIONS: I will continue IV diuretics for 24 hours and stop it tomorrow. Otherwise, continue the rest of his medical regimen and depending on his progress, further recommendations will be made. MMODL / IJN: [id number] /
[2020-03-22 19:49] VITALS: RESP 18
[2020-03-22] MEDS: PRAVASTATIN SODIUM 20 MG TAB PO SCH (20:12)
[2020-03-22] MEDS: LATANOPROST 0.005% OPHTH DROPS 2.5 ML BTL BOTH EYES SCH (20:12)
[2020-03-23 07:08] LABS: Calcium 9.5 mg/dL (8.4-10.2); Potassium 4.1 mmol/L (3.5-5.1)
[2020-03-23] MEDS: MULTIVITAMINS, THERA 1 EACH TAB PO SCH (09:15)
[2020-03-23] MEDS: amLODIPine 5 MG TAB PO SCH (09:15)
[2020-03-23] MEDS: ASPIRIN 81 MG PO SCH (09:15)
[2020-03-23] MEDS: HEPARIN SODIUM,PORCINE 5,000 UNIT/ML 1 ML VIAL SQ SCH (09:16)
[2020-03-23] MEDS: TIMOLOL 0.5% OPHTH DROPS 5 ML BTL BOTH EYES SCH (09:21)
--- NOTE | 2020-03-23 09:56 | CDI ---
Documentation Clarification Form Date: 03/23/2020 09:53:35 AM From: Jyoti Carrero CCS, CCDS Admit Date: 03/22/2020 01:10:00 PM Patient Name: Philip Ferrera Visit Number: [id number] Discharge Date: ATTENTION: The Clinical Documentation Specialists (CDI) and [facility] Coding Staff appreciate your assistance in clarifying documentation. Please respond to the clarification below the line at the bottom and electronically sign. The CDI & [facility] Coding staff will review the response and follow-up if needed. Please note: Queries are made part of the Legal Health Record. If you have any questions, please contact the author of this message via ITS. Dr. Manju Finch: Coding guidelines do not allow coding professionals to code based on laboratory results; therefore, your input is requested. The COVID-19 test obtained on 03/20/2020 was reported as Negative on 03/20/2020. Per case summary: 59 yo male, presented to the ED on 03/21 with chest discomfort & SOB & swelling of his bilateral lower extremities. Cardiology ruled out CHF. Chest pain likely due to COPD nos. Also found to be in CHENG. Patient history/risk factors: Smoker, Daily alcohol, Hypertension, Hyperlipidemia, family history of early CAD. Clinical Indicators: SOB, chest discomfort, bilateral lower extremity swelling, left > right. COVID TEST 03/20/2020: negative. CXR 03/20: Suspect some minimal atelectasis or scaring, may be indicative of underlying COPD. Vitals signs on admission: T 98.1, P 93, R 18, BP 164/85, PO 96 RA LAB: 03/20: WBC 11.5^, BUN 28^, Cr 1.29^, Glucose 124^, AST 73^, ALT 79^. Treatment: IV Lasix, po Aspirin, Nitrobid, IV Heparin drip. In order to capture the severity of condition, please clarify the COVID-19 status: COVID-19 ruled out Other, please specify: Updated January 2020 Query response documented by attending in Discharge Summary 03/23/2020: COVID-19 ruled out. MTDD
--- NOTE | 2020-03-23 10:13 | P.PN ---
Subjective Progress Note Date: 03/23/20 This is a pleasant 59-year-old gentleman with past medical history significant for hypertension, hyperlipidemia, family history of premature coronary artery disease, who presented to the hospital initially with symptoms of lower extremity edema as well as exertional shortness of breath which had been going on for about 2 weeks. The patient was seen in consultation over the weekend by Dr. Jaime, he's been diuresing on IV Lasix, and initial BNP was 73. Troponins were all negative 3. Echocardiogram with Doppler study was performed which revealed an ejection fraction of 55-60%. Patient was seen and examined this morning, overall doing well. Breathing is stable. He is anticipating a p ossible discharge today. We will discontinue his IV Lasix and changed to oral diuretics. Objective - Vital Signs Vital signs: Vital Signs Temp 98.6 F 03/23/20 03:17 Pulse 91 03/23/20 03:17 Resp 18 03/23/20 03:17 BP 137/82 03/23/20 03:17 Pulse Ox 95 03/23/20 03:17 Intake & Output 03/22/20 03/23/20 03/23/20 18:59 06:59 18:59 Intake Total 240 540 240 Output Total 1050 1380 Balance -810 -840 240 Weight 136.1 kg Intake: Oral 240 540 240 Output: Urine 1050 1380 Other: Voiding Method Toilet Urinal # Voids 1 1 - Exam PHYSICAL EXAMINATION: HEENT: Head is atraumatic, normocephalic. Pupils equal, round. Neck is supple. There is no elevated jugular venous pressure. HEART EXAMINATION: Heart sounds regular, S1 and S2 normal. No murmur or gallop heard. CHEST EXAMINATION: Lungs are clear but diminished to auscultation. No chest wall tenderness is noted on palpation or with deep breathing. ABDOMEN: Soft, obese, nontender. Bowel sounds are heard. No organomegaly noted. EXTREMITIES: 1+ peripheral pulses with evidence of 2+ peripheral edema and calf tenderness noted. NEUROLOGIC patient is awake, alert and oriented x3. - Labs CBC & Chem 7: 03/20/20 14:18 03/23/20 06:32 Labs: Abnormal Lab Results - Last 24 Hours (Table) 03/23/20 Range/Units 06:32 Sodium 136 L (137-145) mmol/L BUN 23 H (9-20) mg/dL Glucose 116 H (74-99) mg/dL Assessment and Plan Plan: Assessment and plan: #1 symptoms of lower extremity edema, dyspnea on exertion and chest heaviness, NT proBNP is normal and troponin negative 3 with a negative d-dimer. Mild congestive cardiac failure, diastolic acute on chronic #2 hypertension #3 hyperlipidemia #4 acute kidney injury #5 current every day smoker #6 COPD Plan We will discontinue the IV Lasix and start the patient on Lasix orally 60 mg one tablet by mouth twice a day. Patient may be able to be discharged home from cardiology's perspective, we'll make him a follow-up appointment in the office post discharge. DNP note has been reviewed, I agree with a documented findings and plan of care. Patient was seen and examined.
[2020-03-23] MEDS: FUROSEMIDE 10 MG/ML 4 ML VIAL IV SCH (10:35)
--- NOTE | 2020-03-23 12:18 | P.DS ---
Providers Date of admission: 03/22/20 13:10 Expected date of discharge: 03/23/20 Attending physician: Manju Finch Consults: 03/20/20 15:25 Consult Physician Urgent Consulting Provider: [facility] Consult Reason/Comments: Unstable angina Do you want consulting provider notified?: Yes Primary care physician: Jason Humphrey [facility] Course: Final diagnosis Chest heaviness and shortness of breath. Ruled out ACS. Likely due to underlying COPD. Covid 19 ruled out Bilateral lower extremity edema L > R Mild transaminitis Hypertension Hyperlipidemia with LDL 91 and mild hypercoagulability anemia Ongoing nicotine addiction Daily alcohol use Morbid obesity BMI 41.6 Mild acute kidney injury with creatinine level I.29 DVT prophylaxis Discharge disposition Patient is being discharged in stable condition with guarded prognosis to home. Patient will follow-up with Dr. Jason Humphrey upon discharge. Patient will also be following up with cardiology Dr. Jaime in the outpatient setting. Patient will continue on oral Lasix 60 mg twice daily. Total time taken is 35 minutes. History of present illness This is a 59-year-old male who was recently admitted with shortness of breath along with some bilateral lower extremity swelling and was being closely monitored. Cardiology following. Patient was continued on IV diuresis and diuresed well. Patient shortness of breath and bilateral lower extremity has improved. Patient will continue on oral Lasix 60 mg twice daily and will need close outpatient follow-up with primary care provider along with cardiology. During hospitalization patient underwent an echo showing overall left ventricular systolic function is normal with an EF between 55 and 60%, normal LAPD grade 1 diastolic dysfunction along with a trace of mitral and tricuspid regurgitation present. During hospitalization patient also underwent an abdominal ultrasound showing a small cystic lesion in the right lobe of the liver that is not simply cystic and will need outpatient follow-up. Patient will follow-up with Dr. Jaime in the outpatient setting as discussed and scheduled. Currently no reports of chest pain, shortness of breath, or palpitations. Patient is afebrile. No reports of nausea or vomiting and patient is tolerating diet. On exam vital signs are stable. Temp is 98.6F, pulse is 66, respirations are 16, blood pressures 132/81, oxygen saturation is 96% on room air. Cardio S1, S2 are present. Respiratory system is clear to auscultation. Abdomen is soft, obese, nontender. Nervous system shows no focal deficits. Please refer to medication reconciliation sheet for a list of medications. Patient Condition at Discharge: Stable Plan - Discharge Summary Discharge Rx Participant: No New Discharge Prescriptions: New Aspirin 81 mg PO DAILY 30 Days #30 chew amLODIPine [Norvasc] 5 mg PO DAILY 30 Days #30 tab Continue Travoprost 1 drop BOTH EYES HS Timolol [Betimol 0.5% Ophth Soln] 1 drop BOTH EYES DAILY Furosemide [Lasix] 60 mg PO BID Pravastatin Sodium [Pravachol] 20 mg PO HS Multivit-Min/FA/Lycopen/Lutein [Centrum Silver Men Tablet] 1 tab PO DAILY Discontinued amLODIPine [Norvasc] 10 mg PO DAILY Lisinopril [Zestril] 10 mg PO DAILY Discharge Medication List Furosemide [Lasix] 60 mg PO BID 03/20/20 [History] Multivit-Min/FA/Lycopen/Lutein [Centrum Silver Men Tablet] 1 tab PO DAILY 03/20/20 [History] Pravastatin Sodium [Pravachol] 20 mg PO HS 03/20/20 [History] Timolol [Betimol 0.5% Ophth Soln] 1 drop BOTH EYES DAILY 03/20/20 [History] Travoprost 1 drop BOTH EYES HS 03/20/20 [History] Aspirin 81 mg PO DAILY 30 Days #30 chew 03/23/20 [Rx] amLODIPine [Norvasc] 5 mg PO DAILY 30 Days #30 tab 03/23/20 [Rx] Follow up Appointment(s)/Referral(s): Hernan Jaime MD [STAFF PHYSICIAN] - 04/09/20 3:45 pm (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
[2020-03-23 12:39] LABS: Hepatitis A Antibody IgM Non-Reactive (Non-Reactive); Hepatitis B Core IgM Non-Reactive (Non-Reactive); Hepatitis B Surface Antigen Non-Reactive (Non-Reactive); Hepatitis C IgG Antibody Non-Reactive (Non-Reactive)
[2020-03-23 15:35] VITALS: BP 135/83; PULSE 63; TEMP 98.1
[2020-03-23] MEDS ORDERED: FUROSEMIDE 20 MG TAB PO SCH (16:00)
--- NOTE | 2020-03-25 10:09 | CDI ---
Documentation Clarification Form Date: 03/25/20 From: Etta Schilling Phone: If you have a question about this query, please contact Belén Vazquez, Field Support Technician at [phone] between 8am and 5pm. Admit Date: 03/22/20 Discharge Date:03/23/20 Patient Name: Philip Ferrera Visit Number: [id number] ATTENTION: The Clinical Documentation Specialists (CDI) and [facility] Coding Staff appreciate your assistance in clarifying documentation. Please respond to the clarification below the line at the bottom and electronically sign. The CDI & [facility] Coding staff will review the response and follow-up if needed. Please note: Queries are made part of the Legal Health Record. If you have any questions, please contact the author of this message via ITS. Dear Dr. Mathew Chest heaviness and shortness of breath likely due to underlying COPD is located in the H&P and discharge summary. History/Risk Factors: COPD, obesity, CHF Present or past smoker: Current every day smoker Home O2: None Clinical Indicators: Chest heaviness, shortness of breath, edema CXR: Suspect some minimal atelectasis or scarring. Flattening of the hemidiaphragms may be indicative of underlying COPD. Vital Signs/Pulse Oximetry: T. 98.1, P. 93, R. 18, BP 164/85, Pulse Ox. 96% on room air Lung and Respiratory Assessment: Bilateral prolonged breath sounds. No wheezing, no crackles. Lung finley clear to auscultation and percussion. Treatment: No meds for COPD, patient did get IV Lasix Nebulizers: None Steroids: None O2: None Antibiotics:None In your professional opinion, can you please clarify if the above findings and treatment signify any of the following? Acute Exacerbation of Chronic Obstructive Pulmonary Disease (COPD) Chronic obstructive pulmonary disease Other condition, please specify Unable to determine Chronic obstructive pulmonary disease MTDD
== END 2020-03-23 13:14 | disposition home or self-care (01) | DRG 292 ==
LOC: EC 13:13 → 3SCARD 15:25 → OBSVTOIN 03-22 13:10
PROVIDERS: ADMIT Internal Medicine; ATTEND Internal Medicine
DX: I11.0 Hypertensive heart disease with heart failure (principal); N17.9 Acute kidney failure, unspecified; J98.11 Atelectasis; Z68.41 Body mass index [BMI] 40.0-44.9, adult; J44.9 Chronic obstructive pulmonary disease, unspecified; I50.33 Acute on chronic diastolic (congestive) heart failure; E66.01 Morbid (severe) obesity due to excess calories; E78.5 Hyperlipidemia, unspecified; H40.9 Unspecified glaucoma; F17.200 Nicotine dependence, unspecified, uncomplicated; R74.0 Nonspecific elevation of levels of transaminase and lactic acid dehydrogenase [LDH]; Z20.828 Contact with and (suspected) exposure to other viral communicable diseases; Z79.899 Other long term (current) drug therapy; Z98.42 Cataract extraction status, left eye; Z98.41 Cataract extraction status, right eye; Z88.5 Allergy status to narcotic agent; Z86.010 Personal history of colon polyps; Z86.718 Personal history of other venous thrombosis and embolism; Z80.0 Family history of malignant neoplasm of digestive organs; Z82.49 Family history of ischemic heart disease and other diseases of the circulatory system
CPT/HCPCS: 36415; 71046; 76705; 80048; 80053; 80061; 80074; 83605; 83735; 83880; 84443; 84484; 85025; 85379; 85610; 85730; 87635; 93005; 93306; 94760; 96374; 96375; 99291

== ENCOUNTER 2022-03-17 06:53 | Day surgery (SDC) | payer BC ==
[2022-03-15 14:59] VITALS: BMI 41.8
[~2022-03-17 06:53] MED LIST changes: +LIDOCAINE 1% (10MG/ML) FOR IV START INTRADERMA PRN
[2022-03-17 07:06] VITALS: RESP 16; TEMP 97.1
[2022-03-17 07:17] LABS: Glucose,Whole Blood 105 mg/dL (75-99)
--- NOTE | 2022-03-17 07:46 | P.GSHP ---
History of Present Illness H&P Date: 03/17/22 CHIEF COMPLAINT: Colon screen HISTORY OF PRESENT ILLNESS: The patient is a 59-year-old female who presents for colon screen. Lower endoscopy was offered for further evaluation and management. PAST MEDICAL HISTORY: Please see list. PAST SURGICAL HISTORY: Please see list. MEDICATIONS: Please see list. ALLERGIES: Please see list. SOCIAL HISTORY: No illicit drug use FAMILY HISTORY: No reports of Crohn disease or ulcerative colitis. REVIEW OF ORGAN SYSTEMS: CONSTITUTIONAL: No reports of fevers or chills. PHYSICAL EXAM: VITAL SIGNS: Stable GENERAL: Well-developed pleasant in no acute distress. HEENT: No scleral icterus. Extraocular movements grossly intact. Moist buccal mucosa. NECK: Supple without lymphadenopathy. CHEST: Unlabored respirations. Equal bilateral excursions. CARDIOVASCULAR: Regular rate and rhythm. Distal 2+ pulses. ABDOMEN: Soft, nontender, nondistended. MUSCULOSKELETAL: No clubbing, cyanosis, or edema. ASSESSMENT: 1. Colon screen. PLAN: 1. Recommend proceeding with a lower endoscopy 2. 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, colon polyps,glaucomas sally eyes, cataracts sally eyes History of Any Multi-Drug Resistant Organisms: None Reported Additional Past Surgical History / Comment(s): sally cataract surgery Past Anesthesia/Blood Transfusion Reactions: Previous Problems w/ Anesthesia Additional Past Anesthesia/Blood Transfusion Reaction / Comment(s): states takes extra anesthesia has woken up several times during procedures Smoking Status: Current every day smoker - Past Family History Father Family Medical History: Cancer Additional Family Medical History / Comment(s): colon cancer Brother(s) Family Medical History: Blood Disorder, Coronary Artery Disease (CAD), Deep Vein Thrombosis (DVT) Medications and Allergies Home Medications Medication Instructions Recorded Confirmed Type Furosemide [Lasix] 20 mg PO QAM 03/20/20 03/17/22 History Multivit-Min/FA/Lycopen/Lutein 1 tab PO DAILY 03/20/20 03/17/22 History [Centrum Silver Men Tablet] Pravastatin Sodium [Pravachol] 20 mg PO HS 03/20/20 03/17/22 History Timolol [Betimol 0.5% Ophth Soln] 1 drop BOTH EYES DAILY 03/20/20 03/17/22 History Travoprost [Travoprost 0.004%] 1 drop BOTH EYES HS 03/20/20 03/17/22 History Furosemide [Lasix] 10 mg PO 1200 03/15/22 03/17/22 History Tamsulosin HCl [Flomax] 0.4 mg PO HS 03/15/22 03/17/22 History Varenicline [Chantix Continuing 1 mg PO BID 03/15/22 03/17/22 History Pack] amLODIPine [Norvasc] 5 mg PO QAM 03/15/22 03/17/22 History lisinopriL [Zestril] 5 mg PO QAM 03/15/22 03/17/22 History metFORMIN HCL [Glucophage] 500 mg PO DAILY 03/15/22 03/17/22 History Allergies Allergy/AdvReac Type Severity Reaction Status Date / Time meperidine [From Demerol] AdvReac Nausea & Verified 03/17/22 07:07 Vomiting morphine AdvReac Hallucinati Verified 03/17/22 07:07 ons Surgical - Exam Vital Signs Temp Pulse Resp BP Pulse Ox 97.1 F L 83 16 151/81 95 03/17/22 07:02 03/17/22 07:02 03/17/22 07:02 03/17/22 07:02 03/17/22 07:02 Results - Labs Abnormal Lab Results - Last 24 Hours (Table) 03/17/22 Range/Units 07:15 POC Glucose (mg/dL) 105 H (75-99) mg/dL
[2022-03-17] MEDS ORDERED: PROPOFOL 10 MG/ML 20 ML VIAL IV ONE (08:02)
[2022-03-17] MEDS ORDERED: ONDANSETRON 4 MG/2 ML VIAL IVP ONE (08:13)
[2022-03-17] MEDS ORDERED: SCOPOLAMINE 1 MG/72 HR PATCH TRANSDERM ONE (08:14)
[2022-03-17] MEDS ORDERED: DEXAMETHASONE SOD PHOSPHATE 4 MG/ML 1 ML VIAL IVP ONE (08:14)
--- NOTE | 2022-03-17 08:27 | P.PCN ---
Date of Procedure: 03/17/22 Description of Procedure: PREOPERATIVE DIAGNOSIS: Personal history of colon polyps Colonoscopy screening POSTOPERATIVE DIAGNOSIS: Personal history of colon polyps Tubular adenoma transverse colon OPERATION: Colonoscopy to the ileocecal valve and appendiceal orifice, cecum Colonoscopy with hot snare polypectomy Colonoscopy with cold forceps biopsy SURGEON: Valeria Dangelo MD. ANESTHESIA: MAC. INDICATIONS: The patient is an 64-year-old male who presents personal history of colon polyps. Last colonoscopy 5 years. Benefits and risks were described and informed consent was obtained. DESCRIPTION OF PROCEDURE: The patient had undergone Sutab prep. The patient had been brought into the operating room and laid in the left lateral decubitus position. After adequate intravenous sedation, the rectum was examined with 2% lidocaine jelly. The prostate fossa was unremarkable. No external hemorrhoids were encountered. The rectal tone was within normal limits. No lesions were palpated in the rectal vault. An Olympus colonoscope was advanced until the cecum, ileocecal valve and appendiceal orifice were clearly viewed. The prep was excellent. Sigmoid diverticulosis was encountered. Colonic polyps were found and removed. No evidence of focal colitis was found. Retroflexion of the scope demonstrated grade 1 internal hemorrhoids without active bleeding or inflammation. The colon was desufflated. The patient had tolerated the procedure well. Withdrawal time was over 6 minutes. FINDINGS: Aronchick preparation quality scale 1 (1-5) Internal hemorrhoids, grade 1 No external hemorrhoids No arteriovenous malformations. No sigmoid diverticulosis Removal of 1 polyp: - Snare polypectomy midtransverse colon, 8 mm tubulovillous adenoma polyp. No focal colitis. RECOMMENDATIONS: Repeat colonoscopy in 3 years, 2024 Plan - Discharge Summary Discharge Rx Participant: No New Discharge Prescriptions: Continue Travoprost [Travoprost 0.004%] 1 drop BOTH EYES HS Timolol [Betimol 0.5% Ophth Soln] 1 drop BOTH EYES DAILY Furosemide [Lasix] 20 mg PO QAM Pravastatin Sodium [Pravachol] 20 mg PO HS Multivit-Min/FA/Lycopen/Lutein [Centrum Silver Men Tablet] 1 tab PO DAILY amLODIPine [Norvasc] 5 mg PO QAM Furosemide [Lasix] 10 mg PO 1200 Tamsulosin HCl [Flomax] 0.4 mg PO HS lisinopriL [Zestril] 5 mg PO QAM Varenicline [Chantix Continuing Pack] 1 mg PO BID metFORMIN HCL [Glucophage] 500 mg PO DAILY Discharge Medication List Furosemide [Lasix] 20 mg PO QAM 03/20/20 [History] Multivit-Min/FA/Lycopen/Lutein [Centrum Silver Men Tablet] 1 tab PO DAILY 03/20/20 [History] Pravastatin Sodium [Pravachol] 20 mg PO HS 03/20/20 [History] Timolol [Betimol 0.5% Ophth Soln] 1 drop BOTH EYES DAILY 03/20/20 [History] Travoprost [Travoprost 0.004%] 1 drop BOTH EYES HS 03/20/20 [History] Furosemide [Lasix] 10 mg PO 1200 03/15/22 [History] Tamsulosin HCl [Flomax] 0.4 mg PO HS 03/15/22 [History] Varenicline [Chantix Continuing Pack] 1 mg PO BID 03/15/22 [History] amLODIPine [Norvasc] 5 mg PO QAM 03/15/22 [History] lisinopriL [Zestril] 5 mg PO QAM 03/15/22 [History] metFORMIN HCL [Glucophage] 500 mg PO DAILY 03/15/22 [History] Follow up Appointment(s)/Referral(s): Valeria Dangelo MD [STAFF PHYSICIAN] - As Needed Patient Instructions/Handouts: Colorectal Polyps (GEN) Activity/Diet/Wound Care/Special Instructions: Repeat colonoscopy in 3 years, 2024 Discharge Disposition: HOME SELF-CARE
[2022-03-17 08:43] VITALS: BP 128/83; PULSE 72
== END 2022-03-17 09:11 | disposition home or self-care (01) ==
LOC: ORWHC2ENDO 06:53
PROVIDERS: ATTEND Surgery Plastic and Reconstructive Surgery
DX: Z12.11 Encounter for screening for malignant neoplasm of colon (principal); D12.3 Benign neoplasm of transverse colon; F17.200 Nicotine dependence, unspecified, uncomplicated; E66.01 Morbid (severe) obesity due to excess calories; I10 Essential (primary) hypertension; E11.9 Type 2 diabetes mellitus without complications; Z68.41 Body mass index [BMI] 40.0-44.9, adult; Z79.84 Long term (current) use of oral hypoglycemic drugs; Z79.899 Other long term (current) drug therapy; Z82.49 Family history of ischemic heart disease and other diseases of the circulatory system; Z86.010 Personal history of colon polyps; Z87.19 Personal history of other diseases of the digestive system; Z88.5 Allergy status to narcotic agent
CPT/HCPCS: 45385; 88305; J1100; J2405; J2704

== ENCOUNTER → 2022-04-21 | Outpatient (CLI) | payer BC ==
[2022-04-21 10:41] LABS: HCT 42.3 % (39.6-50.0); HGB 13.9 g/dL (13.0-17.0); MCH 31.4 pg (27.0-32.0); MCHC 32.9 g/dL (32.0-37.0); MCV 95.7 fL (80.0-97.0); Mean Platelet Volume 9.6 fL (9.5-12.2); NRBC Per 100 WBC 0 /100 WBCS (0.0-0.0); Platelet Count 319 X 10*3/uL (140-440); RBC 4.42 X 10*6/uL (4.40-5.60); RDW 13.2 % (11.5-14.5); WBC 10.46 X 10*3/uL (4.50-10.00)
[2022-04-21 10:53] LABS: Anion Gap 12.7 mmol/L (10.00-18.00); Blood Urea Nitrogen 29.6 mg/dL (9.0-27.0); Carbon Dioxide 24.3 mmol/L (20.0-27.5); Non-African American GFR(CKD) 42.3 (60.0-200.0); Potassium 4.7 mmol/L (3.5-5.5)
== END | disposition home or self-care (01) ==
LOC: LABPAT 07:10
PROVIDERS: ATTEND Internal Medicine Interventional Cardiology
DX: Z01.812 Encounter for preprocedural laboratory examination (principal); K94.39 Other complications of esophagostomy
CPT/HCPCS: 80051; 82565; 84520; 85027

== ENCOUNTER → 2022-04-21 | Outpatient (CLI) | payer BC ==
[2022-04-21 10:53] LABS: ALT 54 U/L (10-49); AST 35 U/L (14-35); Chol/HDL Ratio 3.38 Ratio; LDL Cholesterol,Calculated 87.3 mg/dL (0.0-131.0)
== END | disposition home or self-care (01) ==
LOC: LABWHC1 07:08
PROVIDERS: ATTEND Nurse Practitioner Adult Health
DX: E78.2 Mixed hyperlipidemia (principal)
CPT/HCPCS: 36415; 80061; 84450; 84460

== ENCOUNTER 2022-04-26 09:28 | Day surgery (SDC) | payer BC ==
[2022-04-22 14:42] VITALS: BMI 43.2
[~2022-04-26 09:28] MED LIST changes: +ALPRAZolam 0.25 MG TAB PO PRN; +ALPRAZolam 0.5 MG TAB PO PRN; +ASPIRIN 325 MG TAB PO STA; +ATORVASTATIN 80 MG TAB PO STA; +HEPARIN SODIUM,PORCINE 10,000 UNIT in SODIUM CHLORIDE 0.9% 1,000 ML IRRIGATION PRN; +HEPARIN SODIUM,PORCINE 2,500 UNIT in SODIUM CHLORIDE 0.9% 250 ML IRRIGATION PRN; -LACTATED RINGERS 1,000 ML IV SCH; -LIDOCAINE 1% (10MG/ML) FOR IV START INTRADERMA PRN; +NITROGLYCERIN SL TABS 0.4 MG TAB SUBLINGUAL PRN; +SODIUM CHLORIDE 0.9% 1,000 ML in EMPTY BAG 1 BAG IV SCH
[2022-04-26] MEDS ORDERED: SODIUM CHLORIDE 0.9% 1,000 ML IV ONE (09:42)
[2022-04-26 10:07] VITALS: TEMP 98.5
[2022-04-26 10:15] LABS: Glucose,Whole Blood 103 mg/dL (75-99)
[2022-04-26] MEDS ORDERED: VERAPAMIL 2.5 MG/ML 2 ML AMP ONE (11:56)
[2022-04-26] MEDS ORDERED: HEPARIN SODIUM 1,000 UN/ML (10ML VL) ONE (12:13)
[2022-04-26] MEDS ORDERED: fentaNYL (PF) 50 MCG/ML 2 ML AMP ONE (12:13)
[2022-04-26] MEDS ORDERED: fentaNYL (PF) 50 MCG/ML 2 ML AMP IVP ONE (12:24)
[2022-04-26] MEDS ORDERED: LIDOCAINE 1% INJ 10MG/ML (5 ML VIAL-PF) SQ ONE (12:27)
[2022-04-26] MEDS ORDERED: MIDAZOLAM 2 MG/2 ML VIAL IVP ONE (12:27)
[2022-04-26] MEDS ORDERED: VERAPAMIL SYRINGE (5 MG/10 ML) INTRAARTER ONE (12:33)
[2022-04-26] MEDS ORDERED: HEPARIN SODIUM 1,000 UN/ML (10ML VL) IV ONE (12:35)
[2022-04-26] MEDS ORDERED: IOPAMIDOL-370 125ML BTL INJ ONE (12:41)
[2022-04-26] MEDS ORDERED: RX INFO: IV CONTRAST WAS GIVEN 1 EACH MISC MISCELLANE PRN (12:49)
--- NOTE | 2022-04-26 12:57 | P.CARDCATH ---
Date of Procedure: 04/26/22 Description of Procedure: Cardiac Catheterization: The patient is a 61-year-old male with known history of hypertension, hyperlipidemia and diabetes who has been complaining of progressive dyspnea on exertion. His MPI showed evidence of lateral wall ischemia. Recommendations were made regarding cardiac catheterization, the risks and the complications were discussed with the patient who is in full understanding and agreement. Procedure Description: Patient was brought to lab scientist in fasting semi-sedated state after receiving Fentanyl and Benadryl achieiving moderate conscious sedated state. Using Xylocaine Anesthesia and Seldinger technique, a 6-Qatari sheath was introduced in the right radial artery . Subsequently, selective coronary angiography performed using a 5-Qatari 3.5 bend Rita catheter. Multiple views of the coronary artery including hemiaxial views were obtained. The 5-Qatari Pigtail catheter was used to cross the aortic valve and LVEDP was calculated. Following that, catheter and sheath were removed. Hemostasis was obtained with deployment of TR band . There was no immediate complication. Patient was returned to room in stable condition. Of note, the patient received a total of 5000 units of intravenous heparin as well as intra-arterial verapamil. There was no immediate complications. Findings: Fluoroscopy: There is severe calcification involving the left main and the LAD. Left main: This is a sizable vessel, bifurcating LAD and left circumflex, left main has no high-grade stenosis. LAD: This vessel gives rise to a large diagonal branch, the LAD is small in caliber. The vessel is calcified proximally and has no high-grade stenosis. Left circumflex: This is a large codominant vessel, giving rise to 2 obtuse margin branch, the first one is very proximal. Distally it bifurcates into a PDA and the PLV that have no high-grade stenosis. RCA: This is a codominant vessel giving rise to a PDA reaching to the inferoapical wall, the right coronary artery midsegment as 20% plaque. [Left] Ventriculogram: Was not performed Hemodynamics: There was no gradient across the aortic valve, LVEDP 16-18 mmHg Conclusion: 1. Calcified left main and LAD 2. Codominant system 3. Mild disease in the RCA Recommendations: In view of the anatomy I see no evidence to suggest obstructive disease as the etiology of his dyspnea. I have recommended to continue present medical regimen with aggressive coronary risks modification and depending on his progress further recommendation will be made. The findings were discussed with the patient and his family, they were in full understanding and agreement. Duration of sedation is 20 minutes.
[2022-04-26] MEDS ORDERED: SODIUM CHLORIDE 0.9% 1,000 ML IV SCH (13:00)
[2022-04-26 16:45] VITALS: RESP 18
[2022-04-26 16:47] VITALS: BP 114/58; PULSE 76
[2022-04-26] MEDS ORDERED: TAMSULOSIN 0.4 MG CAP.ER.24H PO SCH (21:00)
[2022-04-26] MEDS ORDERED: PRAVASTATIN SODIUM 20 MG TAB PO SCH (21:00)
[2022-04-26] MEDS ORDERED: TRAVOPROST BOTH EYES SCH (21:00)
[2022-04-27] MEDS ORDERED: TIMOLOL BOTH EYES SCH (09:00)
[2022-04-27] MEDS ORDERED: carvediloL 6.25 MG TAB PO SCH (09:00)
[2022-04-27] MEDS ORDERED: VARENICLINE 1 MG TAB PO SCH (09:00)
[2022-04-27] MEDS ORDERED: NON FORMULARY DRUG (Aspirin [Adult Low Dose Aspirin Ec] 81 MG Tablet) PO SCH (09:00)
== END 2022-04-26 16:40 | disposition home or self-care (01) ==
LOC: CATHCVL 09:28
PROVIDERS: ATTEND Internal Medicine Interventional Cardiology
DX: I25.10 Atherosclerotic heart disease of native coronary artery without angina pectoris (principal); I25.84 Coronary atherosclerosis due to calcified coronary lesion; I10 Essential (primary) hypertension; E78.5 Hyperlipidemia, unspecified; E11.9 Type 2 diabetes mellitus without complications; Z20.822 Contact with and (suspected) exposure to COVID-19
CPT/HCPCS: 93458; 87635; C1769 ×2; C1894; J2250; J2001; J3010; J1644; Q9967

== ENCOUNTER → 2022-05-30 | Outpatient (CLI) | payer BC ==
--- NOTE | 2022-05-30 07:49 | CTL ---
EXAMINATION TYPE: CT Low Dose Lung DATE OF EXAM ORDERED: 05/30/2022 HISTORY: Lung cancer screening CT DLP: 143.[address] CTDI: 4.3 mGy Automated exposure control for dose reduction was used. SCREENING VISIT: Yes COMPARISON: None TECHNIQUE: Low dose computed tomography scan was performed through the chest at 1 mm thick sections a nd reconstructed images in multiple planes at 1 mm and [address] DIAGNOSTIC QUALITY: Satisfactory FINDINGS: LUNG NODULES: Present, detailed below: Right lower lobe, 4 mm, image 163, series 4. LUNGS: COPD: Severity: Mild Fibrosis: Severity: None Lymph nodes: None Other findings: None RIGHT PLEURAL SPACE: Effusion: None Calcification: None Thickening: None Pneumothorax: None LEFT PLEURAL SPACE: Effusion: None Calcification: None Thickening: None Pneumothorax: None HEART: Heart Size: Normal Coronary Calcification: Moderate Pericardial Effusion: None OTHER FINDINGS: Upper abdomen: Nodular contour to the liver. Bony thorax: Normal-appearing left-sided rib fractures. Multilevel disc degeneration changes througho ut the spine. Supraclavicular region: None Other: None IMPRESSION: 1. Right lower lobe 4 mm pulmonary nodule 2. Nodular contour to liver correlate for cirrhosis. 3. CT LUNG RAD AND CT CHEST RECOMMENDATION: Lung-Rad 2 Benign Appearance or Behavior: Continue annual sc reening with LDCT in 12 months. S Modifier (other clinically significant findings): S, nodular contour to liver, correlate for cirrho sis.
== END | disposition home or self-care (01) ==
LOC: RADCTMAIN 06:49
PROVIDERS: ATTEND Family Medicine
DX: Z12.2 Encounter for screening for malignant neoplasm of respiratory organs (principal); R91.8 Other nonspecific abnormal finding of lung field; Z87.891 Personal history of nicotine dependence
CPT/HCPCS: 71271

== ENCOUNTER → 2022-06-09 | Outpatient (CLI) | payer BC ==
--- NOTE | 2022-06-09 13:12 | US ---
EXAMINATION TYPE: US abdomen limited DATE OF EXAM: 06/09/2022 COMPARISON: 03/22/2020 CLINICAL HISTORY: 61-year-old male F10.10 ALCOHOL ABUSE, UNCOMPLICATED. Cirrhosis. TECHNIQUE: Multiple sonographic images of the right upper quadrant are obtained. FINDINGS: EXAM MEASUREMENTS: Liver Length: 18.3 cm Gallbladder Wall: 0.2 cm CBD: 0.4 cm Right Kidney: 12.5 x 6.2 x 5.7 cm Pancreas: Obscured by bowel gas Liver: Mildly enlarged, echogenic, and attenuating. Small 9 mm cyst within the left lobe. Gallbladder: No stones seen. Hydropic at 5.1 cm wide. No wall thickening or surrounding fluid. CBD: Appears wnl Right Kidney: No hydronephrosis. Upper pole hypoechoic lesion measuring 5.1 x 5.1 x 4.4 cm, not magali rly seen previously. Kitchen Steward notes: Challenging exam due to patient's body habitus, questionable anechoic round area i n superior pole of the right kidney not visualized on previous exam IMPRESSION: 1. Technically difficult exam as above. There appears to be a hypoechoic 5.1 cm lesion at the upper p ole of the right kidney not clearly seen previously. Contrast enhanced CT of the abdomen and pelvis t o further evaluate and exclude a mass. 2. Mild hepatomegaly (18.3 cm) with moderate to severe hepatic steatosis. 3. Hydropic gallbladder at 5.1 cm wide probably due to fasting state. No biliary ductal dilatation or gallstones.
== END | disposition home or self-care (01) ==
LOC: RADUSWWP 07:52
PROVIDERS: ATTEND Family Medicine
DX: K70.30 Alcoholic cirrhosis of liver without ascites (principal); K76.0 Fatty (change of) liver, not elsewhere classified
CPT/HCPCS: 76705

== ENCOUNTER → 2024-11-18 | Outpatient (CLI) | payer OTHER ==
--- NOTE | 2024-11-19 08:47 | MR ---
EXAMINATION TYPE: MR shoulder RT wo con DATE OF EXAM: 11/18/2024 6:22 PM COMPARISON: None. CLINICAL INDICATION: Male, 64 years old with history of S46.011A RIGHT SHOULDER STRAIN, Right shoulde r pain x4 weeks ago, Injured dragging deer out of the [place] and fell, IV Contrast: cc (None if empty) TECHNIQUE: Multiplanar, multisequence imaging of the right shoulder is performed without contrast. FINDINGS: Rotator Cuff: Marked increased signal in the distal infraspinatus tendon. There is retracted tear of at least significant portion of the supraspinatus tendon with 13 mm gap AP diameter sagittal image 7. Heterogeneous but intact subscapularis tendon with surrounding fluid. Rotator cuff muscle bulk is pr eserved. Acromioclavicular Joint: Mild to moderate capsular hypertrophy. Mild narrowing and spurring. Glenohumeral Joint: Small sized joint effusion. There is some narrowing and tiny inferior spurring. Labrum: Heterogeneous increased signal superior labrum consistent with tear. Biceps Tendon: The long head of biceps is not identified in normal location within bicipital groove. Retracted tear is suspected. Bone marrow signal: No focal abnormal marrow signal is appreciated. Other: No additional significant abnormality is appreciated. IMPRESSION: 1. Superior labral tear. Suspected retracted tear of long head of biceps from the labral anchor. 2. Marked tendinosis/partial tearing of the infraspinatus tendon. Tendinosis of the subscapularis ten don. Significant retracted tear of at least majority of the supraspinatus tendon. [facility], , 11/19/2024 8:44 AM
== END | disposition home or self-care (01) ==
LOC: RADMRIMAIN 17:25
PROVIDERS: ATTEND Orthopaedic Surgery Sports Medicine
DX: S46.011A Strain of muscle(s) and tendon(s) of the rotator cuff of right shoulder, initial encounter (principal); M67.813 Other specified disorders of tendon, right shoulder; S43.431A Superior glenoid labrum lesion of right shoulder, initial encounter; X58.XXXA Exposure to other specified factors, initial encounter